=== PATIENT | female | born 1965 | race Caucasian/White ===

== ENCOUNTER 2023-05-05 14:13 | Emergency (ER) | payer BC, OTHER ==
[2023-05-05 14:31] VITALS: RESP 18
--- NOTE | 2023-05-05 15:41 | ED ---
General Adult HPI - General Source: patient, RN notes reviewed Mode of arrival: ambulatory Limitations: no limitations <Lata Reyes - Last Filed: 05/05/23 15:36> - General Source: patient, family (Has been), RN notes reviewed Mode of arrival: ambulatory Limitations: no limitations <Evelyn Orozco - Last Filed: 05/06/23 00:45> - General Chief complaint: Abdominal Pain Stated complaint: Rib Cage pain, Sent over by Neuro Dr Time Seen by Provider: 05/05/23 15:36 - History of Present Illness Initial comments: Patient is a 58 year old female who presents to the emergency department for left-sided pain. This is a chronic issue. No recent injury. Patient's pain is uncontrolled. She was sent by Dr. Robledo at [facility] today. She has history of myofascial pain syndrome, lumbar radiulopathy. (Lata Reyes) 58-year-old female presents to the emergency department chief complaint of left- sided rib cage pain, back pain, hip pain. She states that she has been dealing with this for the past 14 months and has seen multiple providers. She saw her neurologist today who she feels dismissed her and sent her to the emergency department for management of her pain. The pain is reproducible with movement or palpation according to the patient. Patient denies fever, chills, nausea, vomiting. (Evelyn Orozco) - Related Data Home Medications Medication Instructions Recorded Confirmed Mirtazapine [Remeron] 45 mg PO HS 06/13/16 09/23/16 clonazePAM [KlonoPIN] 1 mg PO BID 06/13/16 09/23/16 FLUoxetine HCL [PROzac] 20 mg PO PC-LUNCH 09/15/16 09/23/16 Gabapentin [Neurontin] 200 mg PO BID 09/15/16 09/23/16 Gabapentin [Neurontin] 300 mg PO HS 09/15/16 09/23/16 Ibuprofen [Motrin] 200 - 400 mg PO Q6HR PRN 09/15/16 09/23/16 clonazePAM [KlonoPIN] 2 mg PO HS 09/15/16 09/23/16 Previous Rx's Medication Instructions Recorded Hydrocodone/Acetaminophen [[place]dale 1 - 2 each PO Q6HR PRN #90 tab 09/23/16 5-325] Allergies Allergy/AdvReac Type Severity Reaction Status Date / Time Sulfa (Sulfonamide Allergy Rash/Hives Verified 05/05/23 14:31 Antibiotics) Review of Systems ROS Other: All systems not noted in ROS Statement are negative. <Lata Reyes - Last Filed: 05/05/23 15:36> ROS Other: All systems not noted in ROS Statement are negative. <Evelyn Orozco - Last Filed: 05/06/23 00:45> ROS Statement: Those systems with pertinent positive or pertinent negative responses have been documented in the HPI. Past Medical History Past Medical History: COPD, Fibromyalgia, Mitral Valve Prolapse (MVP) Additional Past Medical History / Comment(s): chronic neck pain History of Any Multi-Drug Resistant Organisms: None Reported Past Surgical History: Tonsillectomy Additional Past Surgical History / Comment(s): epidural injections. c5-c6 fusion Past Anesthesia/Blood Transfusion Reactions: Motion Sickness Past Psychological History: Anxiety, Depression Smoking Status: Never smoker Past Alcohol Use History: Rare Past Drug Use History: None Reported - Past Family History Father Family Medical History: Cancer <Lata Reyes - Last Filed: 05/05/23 15:36> General Exam Limitations: no limitations <Lata Reyes - Last Filed: 05/05/23 15:36> Limitations: no limitations General appearance: alert, in no apparent distress Head exam: Present: atraumatic, normocephalic, normal inspection Eye exam: Present: normal appearance, PERRL ENT exam: Present: normal exam, mucous membranes moist Neck exam: Present: normal inspection. Absent: tenderness, meningismus, lymphadenopathy Respiratory exam: Present: normal lung sounds bilaterally, chest wall tenderness (Left lateral). Absent: respiratory distress, wheezes, rales, rhonchi, stridor, accessory muscle use, decreased breath sounds, prolonged expiratory Cardiovascular Exam: Present: regular rate, normal rhythm, normal heart sounds. Absent: systolic murmur, diastolic murmur, rubs, gallop, clicks GI/Abdominal exam: Present: soft, normal bowel sounds. Absent: distended, tenderness, guarding, rebound, rigid Extremities exam: Present: tenderness (Left hip), normal capillary refill, other (Radial, DP, PT pulses 2+ ) Back exam: Present: normal inspection Neurological exam: Present: alert, oriented X3 Psychiatric exam: Present: normal affect, normal mood Skin exam: Present: warm, dry, intact, normal color. Absent: rash <Sachamaryg raceEvelyn su - Last Filed: 05/06/23 00:45> - General Exam Comments Initial Comments: Visual Physical Exam Vital signs reviewed General: appears to be in pain Head: Normocephalic, atraumatic Eyes: PERRLA, EOMI ENT: Airway patent Chest: Nonlabored breathing Skin: No visual rash, normal skin tone Neuro: Alert and oriented 3 Musculoskeletal: No gross abnormalities (AmyShadiLata) Course Vital Signs 05/05/23 05/05/23 14:25 18:40 Temperature 98.0 F 98 F Pulse Rate 97 91 Respiratory 18 18 Rate Blood Pressure 145/81 137/84 O2 Sat by Pulse 94 L 96 Oximetry Medical Decision Making <Sachamary graceEvelyn su - Last Filed: 05/06/23 00:45> - Medical Decision Making Was pt. sent in by a medical professional or institution ([facility], NDT INSPECTOR, urgent care, hospital, or assisted...) When possible be specific @ -No Did you speak to anyone other than the patient for history (EMS, parent, family, police, friend...)? What history was obtained from this source @ -No Did you review nursing and triage notes (agree or disagree)? Why? @ -I reviewed and agree with nursing and triage notes Were old charts reviewed (outside hosp., previous admission, EMS record, old EKG, old radiological studies, urgent care reports/EKG's, assisted records)? Report findings @ -No old charts were reviewed Differential Diagnosis (chest pain, altered mental status, abdominal pain women, abdominal pain men, vaginal bleeding, weakness, fever, dyspnea, syncope, headache, dizziness, GI bleed, back pain, seizure, CVA, palpatations, mental health, musculoskeletal)? @ -Differential Musculoskeletal Muscular strain, contusion, ligament sprain, fracture, arthritis, septic arthritis, bursitis, cellulitis, muscle spasm, nerve compression, DVT, arterial occlusion, herpes zoster, electrolyte abnormality, tumor.... This is not meant to be in all inclusive list EKG interpreted by me (3pts min.). @ -none X-rays interpreted by me (1pt min.). @ -X-ray left sided ribs and chest show no evidence for acute fracture or acute cardiopulmonary process CT interpreted by me (1pt min.). @ -None done U/S interpreted by me (1pt. min.). @ -None done What testing was considered but not performed or refused? (CT, X-rays, U/S, labs)? Why? @ -None What meds were considered but not given or refused? Why? @ -None Did you discuss the management of the patient with other professionals (professionals i.e. , PA, NDT INSPECTOR, lab, RT, psych nurse, criminal justice social worker, silk screen printer helper, teacher, data officer, medical case manager)? Give summary @ -No Was smoking cessation discussed for >3mins.? @ -No Was critical care preformed (if so, how long)? @ -No Were there social determinants of health that impacted care today? How? (Homelessness, low income, unemployed, alcoholism, drug addiction, transportation, low edu. Level, literacy, decrease access to med. care, [facility], rehab)? @ -No Was there de-escalation of care discussed even if they declined (Discuss DNR or withdrawal of care, Hospice)? DNR status @ -No What co-morbidities impacted this encounter? (DM, HTN, Smoking, COPD, CAD, Cancer, CVA, ARF, Chemo, Hep., AIDS, mental health diagnosis, sleep apnea, morbid obesity)? @ -None Was patient admitted / discharged? Hospital course, mention meds given and route, prescriptions, significant lab abnormalities, going to OR and other pertinent info. @ -Discharged. Patient presented to emergency department chief complaint of left-sided rib cage pain, hip pain, leg pain which patient states that she has chronically. Patient states that she occasionally takes [place] at home but has not taken any today and doesn't believe she has any left. Patient did not want any pain medication IM. Patient was given a motrin and tylenol 3 starter pack. XR obtained which shows no evidence for acute fracture. Patient advised on findings and agreeable with discharge plan for follow up to her orthopedic and neurologist. Patient stable at time of discharge. Case discussed my attending, Dr. William Undiagnosed new problem with uncertain prognosis? @ -No Drug Therapy requiring intensive monitoring for toxicity (Heparin, Nitro, Insulin, Cardizem)? @ -No Were any procedures done? @ -No Diagnosis/symptom? @ -chronic pain Acute, or Chronic, or Acute on Chronic? @ -chronic Uncomplicated (without systemic symptoms) or Complicated (systemic symptoms)? @ -uncomplicated Side effects of treatment? @ -No Exacerbation, Progression, or Severe Exacerbation? @ -No Poses a threat to life or bodily function? How? (Chest pain, [place], [place], pneumonia, PE, COPD, DKA, ARF, appy, cholecystitis, CVA, Diverticulitis, Homicidal, Suicidal, threat to staff... and all critical care pts) @ -No (Evelyn Orozco) Disposition <Lata Reyes - Last Filed: 05/05/23 15:36> Is patient prescribed a controlled substance at d/c from ED?: No Time of Disposition: 18:25 <Evelyn Orozco - Last Filed: 05/06/23 00:45> Clinical Impression: Rib pain on left side Disposition: HOME SELF-CARE Condition: Stable Additional Instructions: Follow up with your primary care provider. Please return to the emergency department for new or worsening symptoms. Referrals: None,Stated [REFERRING] - 1-2 days
--- NOTE | 2023-05-05 16:05 | XR ---
EXAMINATION TYPE: XR ribs LT w pa chest xray DATE OF EXAM: 05/05/2023 COMPARISON: 05/05/2023 INDICATION: Pain TECHNIQUE: Frontal view of the chest and 2 views left ribs were obtained FINDINGS: The heart size is normal. The pulmonary vasculature is normal. The lungs are clear. 2 views of the left ribs appear normal. No acute fractures are evident. No displaced fractures eviden t. No pneumothorax evident. IMPRESSION: 1. No acute osseous abnormality left ribs.
[2023-05-05] MEDS ORDERED: IBUPROFEN 600 MG STARTER PACK 4 TAB BTL PO STA (18:23)
[2023-05-05] MEDS ORDERED: ACET/COD 300 MG/30 MG STARTER PACK 6 TAB BTL PO STA (18:23)
[2023-05-05 18:42] VITALS: BP 137/84; PULSE 91; TEMP 98
== END 2023-05-05 18:42 | disposition home or self-care (01) ==
LOC: EC 14:13
DX: G89.29 Other chronic pain (principal); R07.81 Pleurodynia; M25.552 Pain in left hip; J44.9 Chronic obstructive pulmonary disease, unspecified; F41.9 Anxiety disorder, unspecified; F32.A Depression, unspecified; Z79.899 Other long term (current) drug therapy; Z88.2 Allergy status to sulfonamides
CPT/HCPCS: 99284